=== PATIENT | female | born 1940 | race Caucasian/White ===

== ENCOUNTER 2017-08-31 19:01 | Emergency (ER) | payer MEDICARE, BC ==
[~2017-08-31] VITALS: Ht 152.4 cm; Wt 59.0 kg
[~2017-08-31 19:01] MED LIST: CLON0.1T PO; CLOP75TA15 PO; SIMV20TA6 PO
--- NOTE | 2017-08-31 19:21 | NUR ---
DR RADHA DECKER MD AT BEDSIDE FOR MSE.
[2017-08-31] MEDS ORDERED: ALBUTEROL SULFATE 2.5 MG/3 ML NEBU NEB ONE (19:30)
[2017-08-31] MEDS ORDERED: IPRATROPIUM BROMIDE 0.5 MG/2.5 ML NEBU NEB ONE (19:30)
--- NOTE | 2017-08-31 19:30 | NUR ---
RT PAGED FOR BREATHING TREATMENT.
--- NOTE | 2017-08-31 19:37 | NUR ---
RT AT BEDSIDE FOR BREATHING TREATMENT
[2017-08-31] MEDS ORDERED: IPRATROPIUM BROMIDE 0.5 MG/2.5 ML NEBU ONE (19:39)
[2017-08-31] MEDS ORDERED: ALBUTEROL SULFATE 2.5 MG/3 ML NEBU ONE (19:39)
--- NOTE | 2017-08-31 19:41 | NUR ---
XRAY AT BEDSIDE.
--- NOTE | 2017-08-31 20:16 | NUR ---
Patient discharged to home in stable conditon. Written and verbal after care instructions given. Patient verbalizes understanding of instructions. Pt ambulated from ER w/ steady gait. Denies SOB. No distress noted.
--- NOTE | 2017-08-31 20:18 | NUR ---
Patient discharged to home in stable conditon WITH TAKING PATIENT HOME. Written and verbal after care instructions given. Patient verbalizes understanding of instructions. WALKED OUT OF ER WITH STEADY GAIT NO DISTRESS NOTED
[2017-08-31 20:19] VITALS: BP 110/66
== END 2017-08-31 20:20 | disposition home or self-care (01) ==
LOC: ER 19:02
DX: J06.9 Acute upper respiratory infection, unspecified (principal); I10 Essential (primary) hypertension; E78.5 Hyperlipidemia, unspecified; Z88.6 Allergy status to analgesic agent; Z79.01 Long term (current) use of anticoagulants; Z79.899 Other long term (current) drug therapy
CPT/HCPCS: 71045; A4663; J3590

== ENCOUNTER 2017-11-22 09:19 | Inpatient (IN) | payer MEDICARE, BC ==
[~2017-11-22] VITALS: Ht 152.4 cm; Wt 64.0 kg
[2017-11-22 09:38] LABS: BASOPHILS % (AUTO) 0.8 % (0.0-2.0); EOSINOPHILS # (AUTO) 0.2 K/uL (0.0-0.7); EOSINOPHILS % (AUTO) 3.8 % (0.0-7.0); HEMATOCRIT 41.4 % (31.2-41.9); HEMOGLOBIN 14.3 g/dL (10.9-14.3); LYMPHOCYTES # (AUTO) 1.7 K/uL (20.0-40.0); LYMPHOCYTES % (AUTO) 34.4 % (20.5-51.5); MEAN CORPUSCULAR HGB CONC 34 g/dL (32.3-35.6); MEAN CORPUSCULAR VOLUME 90.2 fL (75.5-95.3); MONOCYTES # (AUTO) 0.4 K/uL (2.0-10.0); MONOCYTES % (AUTO) 8.8 % (0.0-11.0); NEUTROPHILS # (AUTO) 2.6 K/uL (1.8-8.9); NEUTROPHILS % (AUTO) 52.2 % (38.5-71.5); PLATELET COUNT (AUTO) 165 K/uL (179-408); WHITE BLOOD COUNT (AUTO) 4.9 K/uL (3.8-11.8)
[2017-11-22] MEDS ORDERED: ASPI81TA31 PO (09:38)
[2017-11-22] MEDS ORDERED: AMLODIPINE PO (09:40)
[2017-11-22] MEDS ORDERED: METOPROLOL PO (09:40)
--- NOTE | 2017-11-22 09:40 | NUR ---
PT RECALL OF MEDS AND DOSAGES VERY POOR. WAITING FOR TO HELP OUT.
[2017-11-22] MEDS ORDERED: ASPIRIN 81 MG TAB.CHEW ONE (09:44)
[2017-11-22] MEDS ORDERED: ASPIRIN 81 MG TAB.CHEW PO ONE (09:45)
[2017-11-22 10:00] LABS: ALANINE AMINOTRANSFERASE 23 U/L (14-59); ALKALINE PHOSPHATASE 134 U/L (50-136); ASPARTATE AMINOTRANSFERASE 24 U/L (15-37); BILIRUBIN,DIRECT 0.1 mg/dL (0.0-0.2); BILIRUBIN,TOTAL 0.6 mg/dL (0.2-1.0); CARBON DIOXIDE 24 mmol/L (21-32); CHLORIDE 105 mmol/L (98-107); GLUCOSE 129 mg/dL (74-106); POTASSIUM 3.8 mmol/L (3.5-5.1); TOTAL PROTEIN, SERUM 7.2 g/dL (6.4-8.2)
[2017-11-22 10:09] LABS: UREA NITROGEN, BLOOD 20 mg/dL (7-18)
[2017-11-22 10:25] LABS: CREATININE 1.1 mg/dL (0.6-1.3)
--- NOTE | 2017-11-22 10:36 | NUR ---
Patient is resting comfortably on gurney with eyes closed. PATIENT IS PAIN FREE AT THIS TIME.
[2017-11-22 12:16] VITALS: BP 128/62
--- NOTE | 2017-11-22 12:30 | NUR ---
Received pt from ER. Dr aguilar here to see patient awaiting admitting orders. Pt is alert and oriented x 4. PT denies any c/o pain. Discussed with pt to notify nursing for any c/o chest discomfort- pt agreeable with plan of care. Tele SNR @ 70's Call light is within reach. Skin dry and intact.
[2017-11-22] MEDS ORDERED: METOPROLOL TARTRATE 25 MG TABLET PO SCH (12:56)
[2017-11-22] MEDS ORDERED: MORPHINE SULFATE 2 MG/1 ML DISP.SYRIN IV PRN (13:00)
[2017-11-22] MEDS ORDERED: MORPHINE SULFATE 4 MG/1 ML DISP.SYRIN IV PRN (13:00)
[2017-11-22] MEDS ORDERED: METOPROLOL TARTRATE 50 MG TABLET PO SCH ×2 (13:00→22:00)
[2017-11-22] MEDS ORDERED: ONDANSETRON 4 MG/2 ML VIAL IV PRN (13:00)
[2017-11-22] MEDS ORDERED: NITROGLYCERIN 0.4 MG/TAB BOTTLE SL PRN (13:00)
[2017-11-22] MEDS ORDERED: PRAV40TA3 PO (13:38)
[2017-11-22] MEDS ORDERED: LOSA50TA21 PO (13:40)
[2017-11-22] MEDS ORDERED: METO50TA16 PO (13:56)
[2017-11-22 14:59] VITALS: BP 125/67
--- NOTE | 2017-11-22 18:26 | NUR ---
Dr aguilar notified medication reconcillation still not complete awaiting further orders. Pt is in no acute distress. Dr estevez saw pt and scheduled for heart catheterization @3:30 tomorrow. Pt remains SNR in tele no ectopy. Call light is within reach.
[2017-11-22 19:59] VITALS: BP 110/62
--- NOTE | 2017-11-22 20:15 | NUR ---
NOTIFIED DR GARCIA ABOUT THE CHANGES TO PT'S HOME MEDICATION AND THE NEED TO RECONCILE THEM, STATED HE WILL RECONCILE THE MEDICATION. PT NOTIFIED, WILL CONTINUE TO MONITOR
[2017-11-22] MEDS: ATORVASTATIN 40 MG TABLET PO SCH (21:00)
--- NOTE | 2017-11-22 21:34 | NUR ---
PT ASKED ABOUT HER NIGHT TIME MEDICATION, AND A SLEEP AIDE, ORDER RECEIVED FOR MELATONIN. REMINDED OF THE HOME MEDICATION, STATED HE WILL RECONCILE THEM. WILL CONTINUE TO MONITOR.
[2017-11-22] MEDS: METOPROLOL TARTRATE 25 MG TABLET PO SCH (21:45)
--- NOTE | 2017-11-22 21:46 | NUR ---
pt refused her atorvastatin, pt had taken her own pravastatin, pt educated about not taking her own medication. will continue to monitor.
[2017-11-22] MEDS ORDERED: MELATONIN 3 MG TABLET ONE (21:56)
[2017-11-22] MEDS ORDERED: Medication Not On Formulary EA (Pravastatin Sodium 1 TAB) PO SCH (22:00)
[2017-11-22] MEDS: LOSARTAN POTASSIUM 50 MG TABLET PO SCH (22:00)
[2017-11-22] MEDS ORDERED: AMLODIPINE PO SCH (22:00)
[2017-11-22] MEDS: MELATONIN 3 MG TABLET PO PRN (22:00)
[2017-11-23] VITALS (10 sets, daily range): BP systolic 115–138; BP diastolic 56–85
--- NOTE | 2017-11-23 05:35 | NUR ---
PT HAD DIFFICULTY WITH GETTING SLEEP DURING THE NIGHT, SLEEP MEDICATION WAS GIVEN BUT WAS NOT EFFECTIVE. PT COMPLAINED OF PAIN ONCE, ONLY WHILE LAYING DOWN ON HER LEFT SIDE, PAIN RESOLVED WITH MOVING TO HER BACK. PT DENIED HAVING ANY DIFFICULTY BREATHING. PT WAS SINUS RHYTHM ON THE MONITOR. PT'S TROPONIN TRENDING UP, PAPER BAG INSPECTOR AWARE. ALL NEEDS MET, SAFETY MEASURES ARE IN PLACE, CALL LIGHT WITHIN REACH, BED ALARM IS ON.
[2017-11-23 06:36] LABS: CARBON DIOXIDE 25 mmol/L (21-32); CHLORIDE 109 mmol/L (98-107); CHOLESTEROL 140 mg/dL (<200); GLUCOSE 109 mg/dL (74-106); HDL CHOLESTEROL 53 mg/dL (40-60); PHOSPHOROUS 4.3 mg/dL (2.5-4.9); POTASSIUM 4.1 mmol/L (3.5-5.1); TRIGLYCERIDES 65 MG/DL (30-150); UREA NITROGEN, BLOOD 16 mg/dL (7-18)
[2017-11-23 06:48] LABS: EOSINOPHILS # (AUTO) 0.2 K/uL (0.0-0.7); MONOCYTES # (AUTO) 0.4 K/uL (2.0-10.0); RED BLOOD CELL COUNT(AUTO) 4.15 MIL/uL (3.63-4.92); WHITE BLOOD COUNT (AUTO) 4.4 K/uL (3.8-11.8)
[2017-11-23 07:11] LABS: BASOPHILS % (AUTO) 0.7 % (0.0-2.0); EOSINOPHILS % (AUTO) 4.3 % (0.0-7.0); LYMPHOCYTES # (AUTO) 1.3 K/uL (20.0-40.0); LYMPHOCYTES % (AUTO) 29.7 % (20.5-51.5); MEAN CORPUSCULAR HGB CONC 35 g/dL (32.3-35.6); MEAN CORPUSCULAR VOLUME 89.6 fL (75.5-95.3); MONOCYTES % (AUTO) 9.4 % (0.0-11.0); NEUTROPHILS # (AUTO) 2.4 K/uL (1.8-8.9); NEUTROPHILS % (AUTO) 55.9 % (38.5-71.5); PLATELET COUNT (AUTO) 160 K/uL (179-408)
[2017-11-23 07:13] LABS: HEMATOCRIT 37.2 % (31.2-41.9); HEMOGLOBIN 12.9 g/dL (10.9-14.3)
--- NOTE | 2017-11-23 08:00 | NUR ---
Discussed plan of care regarding pt: to notify nursing if pt is having any c/o chest pain. Pt agreeable with plan of care. Pt wants DR Estevez to call her own manager shipping DR Izaguirre regarding coranary angiogram recommendation- she will only do the angiogram if her own manager shipping gives an ok. Called dr estevez's office awaiting call back. Pt given light breakfast then NPO after - pt agreeable with plan of care. Pt IV on righ F/a patent. Call light is within reach.
[2017-11-23] MEDS: ASPIRIN 325 MG TABLET PO SCH ×2 (08:27→08:33)
[2017-11-23] MEDS: METOPROLOL TARTRATE 25 MG TABLET PO SCH ×2 (08:28→21:54)
[2017-11-23] MEDS: CLOPIDOGREL 75 MG TABLET PO SCH (08:28)
[2017-11-23] MEDS: LOSARTAN POTASSIUM 50 MG TABLET PO SCH (08:28)
[2017-11-23] MEDS ORDERED: ASPIRIN 81 MG TAB.CHEW PO SCH ×2 (09:00)
--- NOTE | 2017-11-23 14:00 | NUR ---
Pt being picked up by EMT to go to [facility] for angiogram. Dr estevez spoke to pt's own investigative reporter (DR Medina [phone]) and agreeable with coronary angiogram. PT called her own DR MEDINA. Pt now agreeable on going to angiogram. Gave report to KEZIA MCCLOUD at [facility]. No SOB noted upon pickle sorter. No current c/o CP.
--- NOTE | 2017-11-23 18:02 | NUR ---
F/u call made to [facility] [phone] transferred to clam bed laborer spoke with Paris MCCLOUD confirmed that pt will be back here to [place]. Notified Nursing corrugator supervisor.
--- NOTE | 2017-11-23 19:15 | NUR ---
Received report from dayswift nurse. Pt not here yet. She's in [facility] for a procedure.
--- NOTE | 2017-11-23 19:48 | NUR ---
Received report from Nancy MCCLOUD in [facility] regarding condition of the pt. Based on her report the arteries and the stents of the patient are okay. There is no bleeding, no pain and no hematoma noted. Pt will be transported at 2000h to our hospital.
--- NOTE | 2017-11-23 21:15 | NUR ---
RECEIVED PT VIA GURNEY.Mahendra Rader reported to me that pt has stable vital signs. iv intact and patent.
--- NOTE | 2017-11-23 21:17 | NUR ---
Pt shows no signs of distress. Pt on telemetry. Pt iv intact and patent. Pt vital signs within normal limit. Call light within reach. bed alarm on and in low position, side rails upx2. will continue to monitor.
[2017-11-23] MEDS: ATORVASTATIN 40 MG TABLET PO SCH (21:52)
[2017-11-23] MEDS: MELATONIN 3 MG TABLET PO PRN (22:35)
[2017-11-24 04:00] VITALS: BP 139/73
--- NOTE | 2017-11-24 06:15 | NUR ---
PT SLEPT THROUGHOUT THE SHIFT. PT SHOWS NO SIGNS OF DISTRESS. IV INTACT AND PATENT. PRESCRIBED MEDICATION GIVEN AND PT TOLERATED IT WELL. VITAL SIGNS WNL. PT CD FOR CARDIAC CATH IS WITH HER.PT SAID HER SLEEPING MEDICATION IS NOT EFFECTIVE. SAFETY AND COMFORT PROVIDED. WILL ENDORSE TO DAYSHIFT NURSE.
[2017-11-24 07:54] LABS: BASOPHILS % (AUTO) 0.6 % (0.0-2.0); EOSINOPHILS # (AUTO) 0.2 K/uL (0.0-0.7); EOSINOPHILS % (AUTO) 4.3 % (0.0-7.0); HEMATOCRIT 37.5 % (31.2-41.9); HEMOGLOBIN 12.9 g/dL (10.9-14.3); LYMPHOCYTES % (AUTO) 24.4 % (20.5-51.5); MEAN CORPUSCULAR HEMOGLOBIN 30.7 uug (24.7-32.8); MEAN CORPUSCULAR HGB CONC 34 g/dL (32.3-35.6); MEAN CORPUSCULAR VOLUME 89.1 fL (75.5-95.3); MONOCYTES # (AUTO) 0.4 K/uL (2.0-10.0); MONOCYTES % (AUTO) 9.5 % (0.0-11.0); NEUTROPHILS # (AUTO) 2.6 K/uL (1.8-8.9); NEUTROPHILS % (AUTO) 61.2 % (38.5-71.5); PLATELET COUNT (AUTO) 169 K/uL (179-408); RED BLOOD CELL COUNT(AUTO) 4.22 MIL/uL (3.63-4.92); WHITE BLOOD COUNT (AUTO) 4.3 K/uL (3.8-11.8)
[2017-11-24 08:03] LABS: CARBON DIOXIDE 26 mmol/L (21-32); CHLORIDE 106 mmol/L (98-107); CREATININE 0.9 mg/dL (0.6-1.3); GLUCOSE 99 mg/dL (74-106); POTASSIUM 3.9 mmol/L (3.5-5.1); UREA NITROGEN, BLOOD 15 mg/dL (7-18)
[2017-11-24] MEDS: CLOPIDOGREL 75 MG TABLET PO SCH (08:12)
[2017-11-24] MEDS: ASPIRIN 325 MG TABLET PO SCH (08:13)
[2017-11-24] MEDS: METOPROLOL TARTRATE 25 MG TABLET PO SCH (08:13)
[2017-11-24] MEDS: LOSARTAN POTASSIUM 50 MG TABLET PO SCH (08:14)
[2017-11-24 11:13] VITALS: BP 125/61
[2017-11-24] MEDS ORDERED: ESOM20CA PO (14:26)
[2017-11-24] MEDS ORDERED: ASPI-612 PO (14:26)
[2017-11-24] MEDS ORDERED: METO25TA6 PO (14:27)
--- NOTE | 2017-11-24 15:08 | NUR ---
Pt is in no acute distress. No SOB noted. Pharmacy education done. Discharge instructions given to patient. pt verbalize understanding. IV d/c. Prescription given to patient. PT to follow up with primary doctor. Pt has appt with pt's own remnant sorter DR MEDINA tomorrow am.
[2017-11-24 15:10] VITALS: BP 129/70
== END 2017-11-24 15:08 | disposition home health service (06) | DRG 282 ==
LOC: ER 09:19 → TELE 11:19
PROVIDERS: ADMIT Internal Medicine; ATTEND Internal Medicine
PROC: 4A023N7 Measurement of Cardiac Sampling and Pressure, Left Heart, Percutaneous Approach (ICD-10-PCS; principal; 2017-11-23)
PROC: B211YZZ Fluoroscopy of Multiple Coronary Arteries using Other Contrast (ICD-10-PCS; 2017-11-23)
DX: I21.4 Non-ST elevation (NSTEMI) myocardial infarction (principal); E78.5 Hyperlipidemia, unspecified; I11.0 Hypertensive heart disease with heart failure; I25.10 Atherosclerotic heart disease of native coronary artery without angina pectoris; Z92.3 Personal history of irradiation; Z85.3 Personal history of malignant neoplasm of breast; Z95.5 Presence of coronary angioplasty implant and graft; I35.1 Nonrheumatic aortic (valve) insufficiency; D69.6 Thrombocytopenia, unspecified; I50.9 Heart failure, unspecified
CPT/HCPCS: 36415; 70030-TC; 71045; 83735; 84100; 84443; 85025; 85610; 85730; 93005; 93307; A4663

== ENCOUNTER 2018-05-07 11:54 | Emergency (ER) | payer MEDICARE, BC ==
[~2018-05-07] VITALS: Ht 160 cm; Wt 61.2 kg
[~2018-05-07 11:54] MED LIST changes: +ASPI-612 PO; -CLON0.1T PO; +ESOM20CA PO; +LOSA50TA21 PO; +METO25TA6 PO; +PRAV40TA3 PO; -SIMV20TA6 PO
--- NOTE | 2018-05-07 12:15 | NUR ---
Urine specimen sent. Pt positioned for comfort.
[2018-05-07 12:35] LABS: *BILIRUBIN,URIN NEGATIVE (NEGATIVE); *BLOOD, URINE NEGATIVE (NEGATIVE); *CLARITY,URINE CLEAR (CLEAR); *COLOR,URINE YELLOW (YELLOW); *KETONES,URINE NEGATIVE (NEGATIVE); *PROTEIN,URINE NEGATIVE (NEGATIVE); *UROBILINOGEN,URINE 0.2 E.U./dl (NORMAL); LEUKOCYTE ESTERASE ,URINE NEGATIVE (NEGATIVE); NITRITE, URINE NEGATIVE (NEGATIVE); UGLUCOSE NEGATIVE (NEGATIVE)
[2018-05-07 12:36] LABS: RBC,URINE NONE SEEN /HPF (0-3); WBC,URINE NONE SEEN /HPF (0-3)
[2018-05-07 12:51] VITALS: BP 113/72
--- NOTE | 2018-05-07 12:53 | NUR ---
reevaluated by dr birmingham. exit care plus prescription given to patient. discharged
== END 2018-05-07 12:52 | disposition home or self-care (01) ==
LOC: ER 11:54
DX: B02.9 Zoster without complications (principal); R10.9 Unspecified abdominal pain; I10 Essential (primary) hypertension; E78.5 Hyperlipidemia, unspecified; Z79.82 Long term (current) use of aspirin; Z79.01 Long term (current) use of anticoagulants; Z79.899 Other long term (current) drug therapy
CPT/HCPCS: A4663

== ENCOUNTER 2018-05-09 10:59 | Emergency (ER) | payer MEDICARE, BC ==
[~2018-05-09] VITALS: Ht 160 cm; Wt 61.7 kg
[~2018-05-09 10:59] MED LIST changes: -LOSA50TA21 PO; +LOSA50TA39 PO
[2018-05-09] MEDS ORDERED: MORPHINE SULFATE 2 MG/1 ML DISP.SYRIN IV ONE (11:15)
[2018-05-09] MEDS ORDERED: VALA100026 PO (11:20)
[2018-05-09] MEDS ORDERED: GABAPENTIN 300 MG CAPSULE PO ONE (11:30)
[2018-05-09] MEDS ORDERED: GABAPENTIN 300 MG CAPSULE ONE (11:32)
[2018-05-09] MEDS ORDERED: MORPHINE SULFATE 2 MG/1 ML DISP.SYRIN ONE (11:33)
[2018-05-09 11:39] LABS: BASOPHILS % (AUTO) 0.6 % (0.0-2.0); EOSINOPHILS # (AUTO) 0.1 K/uL (0.0-0.7); HEMATOCRIT 36.3 % (31.2-41.9); HEMOGLOBIN 12.8 g/dL (10.9-14.3); LYMPHOCYTES # (AUTO) 1.1 K/uL (20.0-40.0); LYMPHOCYTES % (AUTO) 19.9 % (20.5-51.5); MEAN CORPUSCULAR HEMOGLOBIN 30.9 uug (24.7-32.8); MEAN CORPUSCULAR HGB CONC 35 g/dL (32.3-35.6); MEAN CORPUSCULAR VOLUME 87.8 fL (75.5-95.3); MONOCYTES # (AUTO) 0.5 K/uL (2.0-10.0); NEUTROPHILS # (AUTO) 3.7 K/uL (1.8-8.9); NEUTROPHILS % (AUTO) 68.5 % (38.5-71.5); PLATELET COUNT (AUTO) 218 K/uL (179-408); RED BLOOD CELL COUNT(AUTO) 4.13 MIL/uL (3.63-4.92); WHITE BLOOD COUNT (AUTO) 5.4 K/uL (3.8-11.8)
--- NOTE | 2018-05-09 11:40 | NUR ---
IV PLACED, LABS DRAWN-SENT, MEDS ADMINISTERED, MONITOR SHOWS NSR, [id number] ON ROOM AIR. PT TO CT VIA [facility].
[2018-05-09 11:45] LABS: CARBON DIOXIDE 27 mmol/L (21-32); CHLORIDE 92 mmol/L (98-107); CREATININE 0.9 mg/dL (0.6-1.3); GLUCOSE 104 mg/dL (74-106); POTASSIUM 3.7 mmol/L (3.5-5.1); UREA NITROGEN, BLOOD 15 mg/dL (7-18)
[2018-05-09 11:51] LABS: ALANINE AMINOTRANSFERASE 18 U/L (14-59); ALKALINE PHOSPHATASE 120 U/L (50-136); ASPARTATE AMINOTRANSFERASE 16 U/L (15-37); BILIRUBIN,DIRECT 0.1 mg/dL (0.0-0.2); BILIRUBIN,TOTAL 0.4 mg/dL (0.2-1.0); LIPASE 256 U/L (73-393); TOTAL PROTEIN, SERUM 6.5 g/dL (6.4-8.2)
--- NOTE | 2018-05-09 13:10 | NUR ---
Patient discharged to home in stable conditon. Written and verbal after care instructions given. Patient verbalizes understanding of instructions.
[2018-05-09 13:11] VITALS: BP 129/66
== END 2018-05-09 13:12 | disposition home or self-care (01) ==
LOC: ER 10:59 → MED 12:25 → UNDOADMIN 12:25 → ER 13:12
DX: B02.29 Other postherpetic nervous system involvement (principal); E87.1 Hypo-osmolality and hyponatremia; I10 Essential (primary) hypertension; E78.5 Hyperlipidemia, unspecified; I25.10 Atherosclerotic heart disease of native coronary artery without angina pectoris; Z79.82 Long term (current) use of aspirin; Z79.899 Other long term (current) drug therapy; Z79.01 Long term (current) use of anticoagulants
CPT/HCPCS: 36415; 74176; 80048; 80076; 83690; 85025; 96374; 99284; J2270; A4663